=== PATIENT | female | born 1945 | race Hispanic/Latino ===

== ENCOUNTER 2017-03-11 15:33 | Outpatient (CLI) | payer BC ==
--- NOTE | 2017-03-11 16:27 | XRay Report ---
XRAY RIGHT KNEE 4 THREE VIEWS: 03/11/17 CLINICAL: Right knee pain. FINDINGS: Moderate osteopenia. Status post total knee replacement with normal appearance of the prosthesis. No fracture or dislocation.No joint effusion.Normal soft tissues. IMPRESSION: Negative study status post total knee replacement.
== END 2017-03-11 15:34 | disposition home or self-care (01) ==
LOC: SPVIMAG 15:33
PROVIDERS: ATTEND Orthopaedic Surgery Sports Medicine
DX: M85.861 Other specified disorders of bone density and structure, right lower leg (principal); Z96.651 Presence of right artificial knee joint